=== PATIENT | female | born 1945 | race Two or more races ===

== ENCOUNTER 2017-05-22 08:45 | Day surgery (SDC) | payer MEDICARE, OTHER ==
[~2017-05-22] VITALS: Ht 157.5 cm; Wt 81.6 kg
[2017-05-22] VITALS (9 sets, daily range): BP systolic 111–139; BP diastolic 56–76
[~2017-05-22 08:45] MED LIST: ASPIR 8181 MG ORAL; CARVEDILOL12.5 MG ORAL; LOSARTAN POTASS50 MG ORAL; LYRICA50 MG ORAL; METFORMIN HCL500 M1 ORAL; OMEPRAZOLE20 M2 ORAL; VERAPAMIL ER240 MG ORAL; ceFAZolin sod 1 GM in NS 55 ML IVPB ONE
[2017-05-22] MEDS ORDERED: NS Irrig 1000ml ONE (10:00)
[2017-05-22] MEDS ORDERED: Sterile Water Irrig 1000ml IRRIG ONE (10:00)
[2017-05-22] MEDS ORDERED: LR 1000ml ONE (10:00)
[2017-05-22] MEDS ORDERED: Lidocaine 1% MPF 10mg/ml 5ml ONE (10:00)
[2017-05-22] MEDS ORDERED: Alfentanil 2ml Inj ONE (10:00)
[2017-05-22] MEDS ORDERED: Propofol 10mg/ml 20ml IV ONE (10:00)
[2017-05-22] MEDS ORDERED: Midazolam 2mg/2ml Inj ONE (10:00)
[2017-05-22] MEDS ORDERED: Betadine 10% Oint 15gm TOPIC ONE (10:02)
[2017-05-22] MEDS ORDERED: Lidocaine 1% Plain 30 ml INJ ONE (10:02)
[2017-05-22] MEDS ORDERED: Dexamethasone 4mg/ml vial ONE (10:02)
[2017-05-22 10:03] LABS: BASOPHILS % (AUTO) 1.5 % (0.0-2.0); EOSINOPHILS % (AUTO) 6.8 % (0.0-3.0); LYMPHOCYTES % (AUTO) 32.3 % (20.0-45.0); MEAN CORPUSCULAR HEMOGLOBIN 30.2 PG (27.0-31.0); MEAN CORPUSCULAR HGB CONC 32.1 G/DL (32.0-36.0); MEAN CORPUSCULAR VOLUME 94 FL (80-99); MEAN PLATELET VOLUME 9.2 FL (6.5-10.1); MONOCYTES % (AUTO) 10.7 % (1.0-10.0); NEUTROPHILS % (AUTO) 48.7 % (45.0-75.0); PLATELET COUNT 248 K/UL (150-450); RED BLOOD COUNT 4.85 M/UL (4.20-5.40); RED CELL DISTRIBUTION WIDTH 12.4 % (11.6-14.8); WHITE BLOOD COUNT 6.6 K/UL (4.8-10.8)
[2017-05-22] MEDS ORDERED: Bupivacaine 0.25% Inj 30ml INJ ONE (10:03)
[2017-05-22] MEDS ORDERED: Bacitracin 50000 Units Vial ONE (10:03)
[2017-05-22 10:18] LABS: ANION GAP 13 (5-15); CALCIUM 9.4 mg/dL (8.6-10.2); CARBON DIOXIDE 24 mEQ/L (20-30); CHLORIDE 102 mEQ/L (98-107); HEMOLYSIS 6; POTASSIUM 4.6 mEQ/L (3.4-4.9); SODIUM 139 mEQ/L (135-145)
--- NOTE | 2017-05-22 10:22 | Pre-Procedure Note/Attestation ---
Pre-Procedure Note/Attestation Complete Prior to Procedure Planned Procedure: left Procedure Narrative: correction ob painful bunion left foot with osteotomy and screw fixation , correction of hammer toe 2nd left with artroplasty , mpj release and extensor tendon release with k-wire fixation Indications for Procedure Pre-Operative Diagnosis: left bunion with 2nd overlapping hammer toe and contracted MPJ Attestation I attest that I discussed the nature of the procedure; its benefits; risks and complications; and alternatives (and the risks and benefits of such alternatives ), prior to the procedure, with the patient (or the patient's legal compliance representative dealer). I attest that, if there was a reasonable possibility of needing a blood transfusion, the patient (or the patient's legal compliance representative dealer) was given the [place] Department [employer] standardized written summary, pursuant to the [place] Blood Safety Act ([place] Health and Safety Code # 1645, as amended). I attest that I re-evaluated the patient just prior to the surgery and that there has been no change in the patient's H&P, except as documented below: CHARLES CALLE DPM May 22, 2017 10:22
[2017-05-22] MEDS ORDERED: Norco 7.5mg/325mg tab ORAL PRN (10:30)
[2017-05-22] MEDS ORDERED: Metoclopramide 10mg/2ml Inj IVP PRN (10:30)
[2017-05-22] MEDS ORDERED: DiphenhydrAMINE 50mg/ml Inj IVP PRN (10:30)
[2017-05-22] MEDS ORDERED: Hydromorphone 0.5mg/0.5ml inj IVP PRN (10:30)
[2017-05-22] MEDS ORDERED: LR 1000ml 1,000 ML IVLG SCH (10:30)
[2017-05-22] MEDS ORDERED: fentaNYL 100 mcg/2 mL IV PRN (10:30)
[2017-05-22] MEDS ORDERED: Ketorolac 30mg Inj IV PRN (10:30)
[2017-05-22] MEDS ORDERED: Norco 5mg/325mg tab ORAL PRN (10:30)
[2017-05-22] MEDS ORDERED: Atropine Inj 1mg/10ml Syr IV PRN (10:30)
[2017-05-22] MEDS ORDERED: Ketorolac 60mg Inj IV PRN (10:30)
[2017-05-22] MEDS ORDERED: LORazepam Inj 2mg/ml 1ml IV PRN (10:30)
[2017-05-22] MEDS ORDERED: Oxycodone/Acetaminophen 5-325 ORAL PRN (10:30)
[2017-05-22] MEDS ORDERED: Midazolam 2mg/2ml Inj IVP PRN (10:30)
[2017-05-22] MEDS ORDERED: Meperidine 25mg/0.5ml Inj (FOR RIGORS ONLY) IV PRN (10:30)
[2017-05-22 10:35] LABS: PROTHROMBIN TIME 10.4 SEC (9.30-11.50)
--- NOTE | 2017-05-22 10:57 | Anethesia Preoperative Eval ---
Anesthesia Pre-op PMH/ROS General Date of Evaluation: May 22, 2017 Time of Evaluation: 10:16 Anesthesiologist: Juan ASA Score: ASA 3 Mallampati Score Class I : Soft palate, uvula, fauces, pillars visible Class II: Soft palate, uvula, fauces visible Class III: Soft palate, base of uvula visible Class IV: Only hard plate visible Mallampati Classification: Class II Surgeon: Betty Diagnosis: L Foot Bunion Surgical Procedure: L Foot Bunionectomy Anesthesia History: none Family History: no anesthesia problems Allergies: Coded Allergies: LISINOPRIL (Verified Allergy, Intermediate, Hives, 05/22/17) Medications: see eMAR Past Medical History Cardiovascular: Reports: HTN Gastrointestinal/Genitourinary: Reports: GERD Endocrine: Reports: DM HEENT: Reports: cataract (L), cataract (R) PSxH Narrative: BTL, B Cat Ext IOL Anesthesia Pre-op Phys. Exam Physician Exam Last Vital Signs Date Time Temp Pulse Resp B/P Pulse Ox O2 Delivery O2 Flow Rate FiO2 05/22/17 09:33 97.7 64 18 133/75 95 Room Air Constitutional: NAD Neurologic: CN 2-12 intact Cardiovascular: RRR Respiratory: CTA Gastrointestinal: S/NT/ND Airway Exam Mallampati Score: Class II MO: full ROM: full Teeth: missing Anesthesia Pre-op A/P Labs Hematology Test 05/22/17 09:30 White Blood Count 6.6 K/UL (4.8-10.8) Red Blood Count 4.85 M/UL (4.20-5.40) Hemoglobin 14.6 G/DL (12.0-16.0) Hematocrit 45.6 % (37.0-47.0) Mean Corpuscular Volume 94 FL (80-99) Mean Corpuscular Hemoglobin 30.2 PG (27.0-31.0) Mean Corpuscular Hemoglobin Concent 32.1 G/DL (32.0-36.0) Red Cell Distribution Width 12.4 % (11.6-14.8) Platelet Count 248 K/UL (150-450) Mean Platelet Volume 9.2 FL (6.5-10.1) Neutrophils (%) (Auto) 48.7 % (45.0-75.0) Lymphocytes (%) (Auto) 32.3 % (20.0-45.0) Monocytes (%) (Auto) 10.7 % (1.0-10.0) H Eosinophils (%) (Auto) 6.8 % (0.0-3.0) H Basophils (%) (Auto) 1.5 % (0.0-2.0) Coagulation Test 05/22/17 09:30 Prothrombin Time 10.4 SEC (9.30-11.50) Prothromb Time International Ratio 1.0 (0.9-1.1) Activated Partial Thromboplast Time 30 SEC (23-33) Chemistry Test 05/22/17 09:30 Sodium Level 139 mEQ/L (135-145) Potassium Level 4.6 mEQ/L (3.4-4.9) Chloride Level 102 mEQ/L (98-107) Carbon Dioxide Level 24 mEQ/L (20-30) Anion Gap 13 (5-15) Blood Urea Nitrogen 21 mg/dL (7-23) Creatinine 1.0 mg/dL (0.5-0.9) H Estimat Glomerular Filtration Rate mL/min (>60) Glucose Level 136 mg/dL (74-106) H Calcium Level 9.4 mg/dL (8.6-10.2) Risk Assessment & Plan Assessment: ASA 3 Plan: GA, BIS Status Change Before Surgery: No Pre-Antibiotics Dru Grams Ancef IV Given Within 1 Hr of Incision: Yes Time Given: 10:36 Wilfrido Martinez MD May 22, 2017 10:57
--- NOTE | 2017-05-22 10:59 | Immediate Post-Op Evaluation ---
Immediate Post-Op Evalulation Immediate Post-Op Evalulation Procedure: L Foot Bunionectomy Date of Evaluation: May 22, 2017 Time of Evaluation: 12:34 IV Fluids: 500 LR Blood Products: 0 Estimated Blood Loss: 7 Urinary Output: 0 Blood Pressure Systolic: 111 Blood Pressure Diastolic: 74 Pulse Rate: 71 Respiratory Rate: 16 O2 Sat by Pulse Oximetry: 99 Temperature (Fahrenheit): 97.3 Pain Score (1-10): 1 Nausea: No Vomiting: No Complications 0 Patient Status: awake, reacts, patent, extubated, none Hydration Status: adequate Dru Grams Ancef IV Given Within 1 Hr of Incision: Yes Time Given: 10:36 Wilfrido Martinez MD May 22, 2017 10:59
--- NOTE | 2017-05-22 11:00 | 48 Hour Post Anesthesia Eval ---
Post Anesthesia Evaluation Procedure: L Foot Bunionectomy Date of Evaluation: May 22, 2017 Time of Evaluation: 14:42 Blood Pressure Systolic: 136 0: 68 Pulse Rate: 67 Respiratory Rate: 18 Temperature (Fahrenheit): 98.2 O2 Sat by Pulse Oximetry: 99 Airway: patent Nausea: No Vomiting: No Pain Intensity: 1 Hydration Status: adequate Cardiopulmonary Status: Stable Mental Status/LOC: patient returned to baseline Follow-up Care/Observations: 0 Post-Anesthesia Complications: 0 Follow-up care needed: ready to discharge Wilfrido Martinez MD May 22, 2017 11:00
--- NOTE | 2017-05-22 11:08 | Diagnostic Imaging Report ---
Indication: Cough Comparison: None A single view chest radiograph was obtained. Findings: Cardiomediastinal appearance is within normal limits for age. Pulmonary vascularity is appropriate. Aorta is mildly calcified. The diaphragmatic contour is smooth and costophrenic angles are sharp. No pleural effusions are identified. The bones are unremarkable. Impression: No acute findings
--- NOTE | 2017-05-22 12:09 | Diagnostic Imaging Report ---
Indication: Pain Comparison: None Findings: 3 views of the left foot were obtained. There is a plantar calcaneal spur. There is narrowing of the first MTP joint with moderate osteophyte formation. Generalized smooth narrowing of several interphalangeal joints noted. Some vascular calcifications are present. Impression: Osteoarthritis as described above
--- NOTE | 2017-05-22 12:21 | Brief Operative Note ---
Immediate Post Operative Note Operative Note Pre-op Diagnosis: left bunion with 2nd overlapping hammer toe and contracted MPJ Procedure: bunionectomy with screw fixation , 2nd toe arthroplasty with mpj release and k- wire fixation Post-op Diagnosis: same as pre-op Surgeon: charles montiel Anesthesiologist: damon Anesthesia: MAC Specimen: yes Complications: none Condition: stable Estimated Blood Loss: none Drains: none Tourniquet time: 81 Implant(s) used?: Yes CHARLES MONTIEL DPM May 22, 2017 12:21
--- NOTE | 2017-05-22 14:41 | Diagnostic Imaging Report ---
Indication: Postop Comparison: None Findings: 2 views of the left foot were obtained. Hammertoe correction with K wire traversing the 2 interphalangeal and MTP joint of the second ray noted. The second MTP joint is subluxed and as such the tip of the K wire is adjacent to the neck of the second metatarsal although the K wire does partially traverse the head of the second metatarsal. Bunionectomy and distal first metatarsal osteotomy noted with small fixation screw. Impression: Postop findings as described above
--- NOTE | 2017-05-23 10:00 | Pre-op HX & Phy Repo 2 SIG ---
DATE OF ADMISSION: 05/22/2017 PREOPERATIVE PODIATRIC HISTORY AND PHYSICAL CHIEF COMPLAINT: Left foot pain. HISTORY OF PRESENT ILLNESS: This is a 71-year-old female complaining of left foot pain for the past few years, but the pain has been progressively worsen over the last year. The left foot has a painful medial prominence at the first metatarsal head. She also has a contracted second phalanges with lesion of the PIP joint. She has tried numerous conservative treatment measures including padding, offloading, shoe gear modification, activity modification, but she continued to have daily pain. She reports no recent illnesses and no recurrent nausea, vomiting, fever, chills, or shortness of breath. PAST MEDICAL HISTORY: Significant for diabetes and hypertension. PAST SURGICAL HISTORY: The patient denies. ALLERGIES: Lisinopril. SOCIAL HISTORY: Denies alcohol, tobacco, or illicit drug use. FAMILY HISTORY: No pertinent findings. VASCULAR HISTORY: The patient has been sent to a clearance for surgical intervention on the left foot. PHYSICAL EXAMINATION: VITAL SIGNS: Temperature 97.7 degrees, pulse 61, respiratory rate 18, blood pressure 120/70, and O2 saturation 99% on room temperature. DERMATOLOGICAL: There are no open lesions. left metatarsophalangeal joint as well as dorsal PIPJ of the second toe. NEUROLOGICAL: Sensation is intact to light touch. VASCULAR: Dorsalis pedis and posterior tibial artery are palpable. No edema or erythema noted. MUSCULOSKELETAL: Medial bony prominence at the first metatarsal head and is tender to palpation. The hallux is abducted away from the midline of the body and abutting on the second toe. The second toe is over the dorsal if the hallux. bilaterally. LABORATORY DATA: Laboratory data has been checked and the patient has been cleared by . ASSESSMENT: This is a 71-year-old female with left foot progressively worsening pain and bunion and hammertoe deformity. The patient has tried numerous conservative measures. However, she is still experiencing daily pain. Recommended surgery as a next step in management. The risks, benefits, and alternatives were discussed with the patient in detail, who understands and would like to proceed with surgical intervention. All patient's questions and concerns have been answered. The patient is scheduled to have surgery today, 05/22/2017 at [facility]. Saúl Hernández D.P.M. DR: CRISTIAN JOB#: [id number] CC:
--- NOTE | 2017-05-23 11:30 | Operative Note - Dictated ---
DATE OF OPERATION: 05/22/2017 FACILITY: [facility] SURGEON: Saúl Hernández D.P.M. PREOPERATIVE DIAGNOSES: 1. Left foot painful bunion deformity. 2. Left second toe hammer with contracted metatarsophalangeal joint and overlapping on to the hallux. POSTOPERATIVE DIAGNOSES: 1. Left foot painful bunion deformity. 2. Left second toe hammer with contracted metatarsophalangeal joint and overlapping on to the hallux. PROCEDURE: 1. Left foot bunionectomy with osteotomy and screw fixation. 2. Correction of second digit left hammertoe with arthroplasty and metatarsophalangeal joint release with K-wire fixation. ANESTHESIOLOGIST: Wilfrido Martinez M.D. HEMOSTASIS: Pneumatic ankle tourniquet. ESTIMATED BLOOD LOSS: Less than 5 mL. MATERIAL USED: A 3.0, 22 mm cannulated Vilex screw, 2-0 Vicryl, 4-0 Vicryl, and 4-0 nylon. Injectable: A 20 mL consisting of 1:1 mixture of 0.25% Marcaine plain and 1% lidocaine was injected into the left foot preoperatively. Intraoperatively the patient was injected with 8 mL of Marcaine with 2 mL of dexamethasone, each containing 4 mL of dexamethasone. PATHOLOGY: Bone which was resected from the left first metatarsal head and the proximal phalanx of the second toe was sent for pathology and further study. DRESSING: Incision site was covered with Betadine ointment, Xeroform, 4 x 4, Magdalena, and Coban. COMPLICATIONS: None. Procedure in Detail: The patient was brought into the operating room and was placed in the operating table in supine position. She was padded well to avoid area of excessive pressure. The patient then received 1 g of Ancef before the start of surgery. A time-out was performed. Cotton padding and pneumatic ankle tourniquet was then placed about the patient's left ankle. Following intravenous sedation, a local anesthetic block was administered to the left foot using 20 mL of 1:1 mixture of 0.25% Marcaine and 1% plain lidocaine. The foot was then scrubbed, prepped, and draped in the usual aseptic manner. Attention was directed to the left foot. An Esmarch bandage was then utilized to exsanguinate the patient's left foot and pneumatic ankle tourniquet was inflated to 250 mmHg. A local anesthesia was checked by pinching the patient's skin using a rat-tooth forceps. The patient did not react. A skin marking pen was then used to draw the planned incision site at the dorsal medial aspect of the first metatarsophalangeal joint of left foot. A #15 blade was then used to make an incision approximately 5 cm. A new blade was then used to continue sharp and blunt dissection, which was carried down to the level of joint capsule with care taking to retract all vital neurovascular structures. Soft tissue was then dissected to expose the head of the metatarsal. At this time, it was noticed that the head has moved towards focal lesions as well as degenerative changes and formation. The blade was then used to perform a lateral soft tissue release from the base of the proximal phalanx with all vital structures retracted and protected. Sagittal saw was then used to cut the medial bony eminence. The bone was then passed from the operative site and sent for pathology for analysis. A modified Reverdin osteotomy was then made at the first metatarsophalangeal joint with a sagittal saw. The capital fragment was then shifted laterally, and the osteotomy was hold in place with a premeasured K-wire. The K-wire was placed in the dorsal proximal to plantar to distal orientation. The depth was measured and countersink. The 22 mm 3-0 cannulated Vilex screw was then inserted from dorsal proximal to plantar distal orientation. There was no , there is a good straight knife machine cutter on the screw. The K-wire was then removed. Sagittal saw and a rasp was then used to resect any overhanging bone or sharp edges. Visual inspection for proper alignment was made. A copious amount of irrigation with normal saline and bacitracin was used to flush the surgical site. The joint capsule was then closed using 2-0 Vicryl suture. The capsule tightening on the medial side was also done. Subcutaneous tissue was closed using 4-0 Vicryl and the skin was subsequently closed with nonabsorbable 4-0 nylon suture. At this time, attention was directed to the second toe which was noticed to be overlapping the hallux of the left foot. The planned incision was made over the proximal interphalangeal joint in a linear fashion. The incision was deepened through sharp and blunt dissection to expose the capsule. A transverse capsulotomy was performed and the head of the proximal phalanx was noticed to be enlarged and degeneratively changed. At this time, approximately 5 mm of the head was cut using a sagittal saw and passed from the field. Immediate release of the contracture of the PIP joint was noticed. It was noted that the joint still is dorsally contracted at the metatarsophalangeal joint. A stab incision was used on top of the MPJ of the second toe, extensor tendon as well as dorsal capsulotomy after the metatarsophalangeal joint was done and immediate reduction and reduce of the medial deviation of the toe was noticed. At this time, the K-wire was utilized going from base of the middle phalanx down to the tip of the toenail and was retracted back into the head of the proximal phalanx and going into the head of the metatarsal in a rectus position. The K-wires was then bent, cut and capped. At this time, the extensor tendon was reattached. Copious lavage was attempted. Then subsequently the deep tissues were closed using 4-0 Vicryl and the skin was closed using 4-0 nylon. Upon the closure, an injection consisting of 2 mL of 4 mg 4 mL of dexamethasone and 8 mL of plain Marcaine was given at the area for postoperative pain management and reduction of edema. Both incision was then closed using Xeroform and Betadine ointment, 4 x 4, Magdalena and Mirlande. After the incisions were dressed the tourniquet was deflated and the digit was absorbed for sign of vascular compromise, nonrecurrent. The toe was pink and capillary refill was less than 2 seconds. The patient tolerated surgery and anesthesia without any complications. She was then transferred to the operating care unit and states no pain. The patient was reminded to take antibiotics ibuprofen and [place] as directed. She was also instructed to keep her leg and foot elevated and dressings clean, dry, and intact. Radiograph walkers and postoperative shoe were ordered. The patient was able to partially weight bear on the left heel, but was advised to minimize standing and ambulation for next 24 hours. The patient is to be discharged once medically cleared with anesthesiologist to follow up with Dr. Hernández in the clinical visit. aSúl Hernández D.P.M. DR: JOSI JOB#: [id number] CC:
--- NOTE | 2017-05-27 07:56 | Cardiology Report ---
APPROVED REPORT EKG Measurement Heart [id number] [place] [id number] Normal sinus rhythm Normal ECG
== END 2017-05-22 14:55 | disposition home or self-care (01) ==
LOC: SUR 08:45
DX: M21.612 Bunion of left foot (principal); M20.42 Other hammer toe(s) (acquired), left foot; M24.575 Contracture, left foot; E11.9 Type 2 diabetes mellitus without complications; I10 Essential (primary) hypertension; M19.90 Unspecified osteoarthritis, unspecified site; K21.9 Gastro-esophageal reflux disease without esophagitis; Z88.8 Allergy status to other drugs, medicaments and biological substances
CPT/HCPCS: 28285; 28296; 36415; 71010; 73630; 80048; 82962; 85025; 85610; 85730; 93005; 97161; C1713; G8978; G8979; G8980; J0690; J1100; J2001; J2250; J2405; J2704; J3490; J7120; 94003; 94150